=== PATIENT | female | born 1995 | race African-American/Black ===

== ENCOUNTER → 2020-10-30 02:23 | Outpatient (CLI) | payer OTHER, SELFPAY ==
[2020-10-30 22:46] LABS: SARS-CoV-2 RNA PCR Negative
== END ==
PROVIDERS: Visit Provider Otolaryngology
DX: Z01.812 Encounter for preprocedural laboratory examination (principal); Z20.822 Contact with and (suspected) exposure to COVID-19
CPT/HCPCS: C9803; U0003; U0005

== ENCOUNTER 2020-11-02 01:26 | Day surgery (SDC) | payer SELFPAY ==
[2020-10-29 14:31] VITALS: BMI 25.0
--- NOTE | 2020-10-30 10:39 | PM.IMHP ---
H&P: HPI History of Present Illness Date/Time: 10/30/20 10:39 Chief Complaint: Inferior turbinate hypertrophy, nasal obstruction, septal deviation, abnormal nasal tissue /polyps Narrative: Chandrakant Charles is a 25 year old female With past medical history of abnormal nasal tissue and rhinorrhea. The patient presents for planned surgical procedures. She reports no new symptoms or changes in her medical history. Review of Systems Constitutional: Constitutional: Denies fatigue, Denies fever(s) and Denies lethargy Eyes: Eyes: Denies blurry vision and Denies change in vision ENT: Reports as per HPI Cardiovascular: Cardiovascular: Denies chest pain Respiratory: Respiratory: Denies cough Endocrine: Endocrine: Denies fatigue Hematologic/Lymphatic: Hematologic/Lymphatic: Denies easy bleeding, Denies easy bruising and Denies lymphadenopathy Allergic/Immunologic: Allergic/Immunologic: Denies seasonal rhinorrhea [facility] Family History Family History (Updated 09/25/20 @ 14:45 by Rebecca Khan CMA) Unknown Lung disease Social History Social History (Updated 09/25/20 @ 14:45 by Rebecca Khan CMA) Smoking status: Never smoker Second hand tobacco smoke exposure: No Alcohol intake: former Substance use: never Substance use type: does not use Additional living arrangements comments: WITH SIGNIFICANT OTHER Spiritual care concerns: No Meds Home Medications and Allergies Home Medications Medication Instructions Recorded Confirmed Type methylprednisolone 4 mg tablets in See Rx Instructions PO PER PKG DIR 09/25/20 10/29/20 Rx a dose pack #21 ea azelastine 1 spray INTRANASAL Q12H PRN 10/29/20 10/29/20 History budesonide 0.25 mg IRRIGATION BID PRN 10/29/20 10/29/20 History Allergies Allergy/AdvReac Type Severity Reaction Status Date / Time No Known Allergies Allergy Verified 10/29/20 14:28 Exam Const: General: cooperative, healthy appearing, comfortable, well developed and alert HENMT: Head: normal to inspection, normocephalic and atraumatic Ears: hearing grossly normal bilaterally, external ears normal, TM's normal bilaterally and EAC's normal General nose exam: Normal external nose present and Normal nares present Face and sinus: normal facial exam Mouth: Yes Normal oral and palatal mucosa present, Yes lip normal, Yes tongue normal, Yes oropharynx normal and Yes moist mucous membranes Teeth and gingiva: dentition normal and gingiva normal Throat: posterior oropharynx normal, tonsils normal and uvula midline Other: left septal deviation right mid superior septal deviation inferior turbinate hypertrophy very boggy edematous tissue on the left side in between septum and middle and inferior turbinates Eyes: General: appearance normal, both eyes and all related structures Periorbital: periorbital findings normal Eyelids: eyelids normal Conjunctivae: conjunctivae normal Sclera: sclerae normal Neck: Neck: normal visual inspection, full ROM and no lymphadenopathy Thyroid: thyroid normal Lymphatic: no lymphadenopathy noted Resp: Effort & Inspection: normal respiratory effort and able to speak in complete sentences Cardio: Jugular venous distension: no JVD Neuro: Cranial nerves: Yes CN's II-XII intact bilaterally Assessment and Plan Assessment and plan (1) Hypertrophy of both inferior nasal turbinates: Code(s): J34.3 - Hypertrophy of nasal turbinates Status: Acute Assessment and Plan: Plan is for the OR for turbinate reduction endoscopic assisted septoplasty possible maxillary antrostomies nasal endoscopy and biopsy of any abnormal tissue. The risks include blindness change in vision damage to brain CSF leak damage to surrounding structures the need for further procedures and infection. The patient voiced understanding of these risks and agreed. (2) Nasal septal deviation: Code(s): J34.2 - Deviated nasal septum Status: Acute (3) Nasal p
[2020-11-02] VITALS (8 sets, daily range): BP systolic 113–143; BP diastolic 69–93; PULSE 56–83; RESP 12–20; TEMP 36.6–37; O2SAT 100
--- NOTE | 2020-11-02 07:00 | WPDHPUPDATE1 ---
History and Physical Update Update Date/Time: 11/02/20 07:00 History and Physical has been reviewed, including an updated exam of the patient. There are NO changes in the patient's condition. Risks, benefits, and alternatives have been discussed and questions answered. Patient agrees to proceed with procedure.
[2020-11-02] MEDS: LACTATED RINGERS 1,000 ML 30 ML IV CONT ×2 (10:35→13:05)
[2020-11-02] MEDS: ACETAMINOPHEN 500 MG TABLET 1000 MG PO (10:40)
--- NOTE | 2020-11-02 10:48 | P.PNAN_ITS ---
Anes - Initial Pre Proc Eval Procedure: Operation Date: 11/02/20 12:00 Proposed Procedures p Septoplasty - Jay Jones MD s Bilateral Inferior Turbinectomy, Bilateral Maxillary Antrostomy, Bilateral Nasal Endoscopy - Jay Jones MD Date/Time: 11/02/20 10:48 Surgeon: Jay Jones MD Pre Op Diagnosis: Nasal Septal Deviation, Chronic Sinusitis Patient Data Age: 25 Gender: F Height: 5 ft 7 in Weight: 72.57 kg Allergies Allergy/AdvReac Type Severity Reaction Status Date / Time No Known Allergies Allergy Verified 10/29/20 14:28 Home Medications Medication Instructions Recorded Confirmed Type methylprednisolone 4 mg tablets in See Rx Instructions PO PER PKG DIR 09/25/20 10/29/20 Rx a dose pack #21 ea azelastine 1 spray INTRANASAL Q12H PRN 10/29/20 10/29/20 History budesonide 0.25 mg IRRIGATION BID PRN 10/29/20 10/29/20 History Patient hx anesthesia problems: none Family hx anesthesia problems: none [facility] Past Medical History Medical History Anxiety Family History Family History Unknown Lung disease Social History Social History Smoking status: Never smoker Second hand tobacco smoke exposure: No Alcohol intake: former Alcohol use details: [place]IDA[place] ONLY Substance use: never Substance use type: does not use Living arrangements: with friend(s) Additional living arrangements comments: WITH SIGNIFICANT OTHER Spiritual care concerns: No Anes - Eval Final PreProcedure Day of Procedure 11/02/20 10:48 Patient weight: normal Heart: regular rate and rhythm Lungs: clear to auscultation Airway: Mallampati scale class II Neurological: alert and oriented Last oral intake: >/= 8 hours ASA classification: II Emergent: no Anesthetic plan: proceed Anesthesia type and monitoring: general ETT and standard monitoring Informed Consent: The patient's anesthetic plan and its attendant risks and benefits were discussed with the patient/family/POA. Questions were solicited and answers provided to the satisfaction of the patient/family/POA.
[2020-11-02] MEDS: ceFAZolin 2 GM/D5W 50 ML 2 GM/50 ML BAG IVPB (11:01)
[2020-11-02] MEDS: LIDO 1%/EPINEPHRINE 1:100,000 50 ML VIAL INFILTRATE (11:49)
[2020-11-02] MEDS: OXYMETAZOLINE HCL 0.05% NAS 15 ML BTL (*BKC) 1 SPRAY NASAL (11:49)
--- NOTE | 2020-11-02 13:01 | SUR.OPER ---
Specimen sent with Maribell Savage and received in pathology by Carla
--- NOTE | 2020-11-02 13:13 | P.OP_ITS ---
Procedure Note - Detailed Date of procedure: 11/02/20 Pre-op diagnosis: Nasal Septal Deviation, Chronic Sinusitis Nasal polyps Post-op diagnosis: same Procedure performed: 1. Endoscopic septoplasty 2. Bilateral inferior turbinate reduction 3. Bilateral turbinectomy 4. Left-sided anterior endoscopic ethmoidectomy Description of procedure: The patient was correctly identified and consent was verified in the preoperative holding area. The patient was then brought to the operating room and a time-out was performed. General anesthesia was induced and endotracheal tube secured the patient's airway and taped to the left lower lip. Patient was then prepped and draped for the aforementioned procedures. Under endoscopic guidance the bilateral nasal passages were visualized is unable to view the bilateral middle meati eye because of was splayed nasal septum. 3 cc X use any 7 cc of 1% lidocaine with 1 100,000 parts epinephrine was injected deep to the mucoperichondrium and ostium of the nasal septum bilaterally. A Earl incision was made with 15 blade bilateral nasal septal flaps excuse me mucoperichondrial flaps on the septum or elevated the deviated portions of the septum removed. Left-sided polypoid appearing tissue was noted in the middle meatus and of the middle turbinate. This was also noted on the right but not a significant. The bilateral inferior turbinates were reduced using suction Bovie and outfractured using a cough using the Stephens elevator. The polypoid tissue was biopsied in the bilateral middle turbinates were removed. There stones were cauterized these were sent for fresh as well as permanent pathology given their abnormal appearance the anterior ethmoid portion of the left side was also removed using a Kerrison given its abnormal appearance this was also sent for pa thology. The nasal septum was sutured anteriorly using 2 interrupted 5 0 fast gut sutures. Mercedes splints were placed and sutured anteriorly using a 3 0 interrupted excuse me mattressed nylon suture. Hemostasis was noted to be excellent. I performed all dictated portions of the procedure. Care the patient was given to Anesthesiology. Anesthesia: GETA Surgeon: Jay Jones MD Estimated blood loss (mL): 25 Drains: No Packing: No Pathology: yes Complications: No immediate complications Condition: stable Disposition: PACU Findings: Polypoid tissue involving the bilateral middle turbinates as well as middle meatus more so on the left significantly hypertrophied inferior turbinates. Deviated nasal septum.
[2020-11-02] MEDS: fentaNYL CITRATE INJ (*CRX) 100 MCG/2 ML VIAL 25 MCG IV PUSH ×3 (13:30→13:54)
[2020-11-02] MEDS: oxyCODONE HCL (*CRX) 5 MG TAB IR PO (14:43)
== END 2020-11-02 15:10 | disposition home or self-care (01) ==
PROVIDERS: Visit Provider Otolaryngology
PROC: (CPT 30520; principal; 2020-11-02 12:00)
PROC: (CPT 31254; 2020-11-02 12:00)
DX: J34.2 Deviated nasal septum (principal); J32.9 Chronic sinusitis, unspecified; J33.9 Nasal polyp, unspecified; J34.89 Other specified disorders of nose and nasal sinuses; J34.3 Hypertrophy of nasal turbinates
CPT/HCPCS: 31254; 30520; 30140; 88305; 88311; A9270; J0330; J0690; J2250; J2405; J2704; J3010; J7120